=== PATIENT | female | born 1960 | race Caucasian/White ===

== ENCOUNTER → 2017-09-25 | Outpatient (CLI) | payer BC | LOC: MC.RAD 13:55 | DX: Z12.31 Encounter for screening mammogram for malignant neoplasm of breast (principal) ==

== ENCOUNTER 2021-01-07 08:28 | Day surgery (SDC) | payer BC ==
[~2021-01-07] VITALS: Ht 157.5 cm; Wt 51.7 kg
[2021-01-07 09:17] VITALS: BP 121/86; PULSE 89; TEMP 98.5
[2021-01-07] MEDS ORDERED: OMEGA-3 1000 MG1 CAP PO (09:22)
--- NOTE | 2021-01-07 09:22 | NUR ---
TO RM 2 - CALL LIGHT IN REACH
[2021-01-07 11:10] VITALS: BP 104/64; PULSE 73; TEMP 98.1
--- NOTE | 2021-01-07 11:10 | NUR ---
Pt returns to endo bay via cart with nurse. Pt ambulates to chair with minimal assistance. Report obtained. VSS on RA. Pt denies pain and nausea. Applesauce and cranberry juice to bedside.
[2021-01-07 11:15] VITALS: BP 102/81; PULSE 80
--- NOTE | 2021-01-07 11:15 | NUR ---
Pt has no complaints, VSS. Pt denies nausea and abdominal discomfort.
--- NOTE | 2021-01-07 11:20 | NUR ---
Dr. Reyes in to visit with pt at this time.
[2021-01-07 11:30] VITALS: BP 108/76; PULSE 69
--- NOTE | 2021-01-07 11:30 | NUR ---
Pt continues to be awake and VSS. Pt denies other needs.
--- NOTE | 2021-01-07 11:40 | NUR ---
Pt's IV dc'd without difficulty. Discharge instructions also given at this time.
--- NOTE | 2021-01-07 11:50 | NUR ---
Pt is discharged to private vehicle at this time with boyfriend.
== END 2021-01-07 11:50 | disposition home or self-care (01) ==
LOC: SDCO 08:28
DX: Z12.11 Encounter for screening for malignant neoplasm of colon (principal); Z83.71 Family history of colonic polyps
CPT/HCPCS: J2704; J7030